=== PATIENT | female | born 1950 | race Caucasian/White ===

== ENCOUNTER 2022-09-11 19:10 | Inpatient (IN) | payer MEDICARE, BC, SELFPAY ==
[2022-09-11 19:38] VITALS: BMI 39.4
[2022-09-11 19:46] VITALS: BP 154/64; PULSE 98; RESP 16; TEMP 36.7; O2SAT 99
[2022-09-11 21:26] VITALS: BP 150/59; PULSE 94; RESP 16; TEMP 36.7; O2SAT 98
[2022-09-11 22:00] VITALS: RESP 16
[2022-09-11] MEDS: Magnesium Hydroxide 30 ML UDC 45 ML PO (22:40)
[2022-09-11] MEDS: Gabapentin 300 MG Capsule PO (23:33)
[2022-09-12] MEDS: Acetaminophen 500 MG Tablet 1000 MG PO ×4 (00:01→22:19)
--- NOTE | 2022-09-12 04:20 | NURSING ---
09/11/22 @ 22:50- Hospitalist, Dr Perry, paged @ [phone] and repeated at 23:18 d/t no response. Pt reports 7/10 pain and refused Hostetter on OCT claiming it makes her dizzy and she was getting Tylenol and Ultram PRN at . Hospitalist put in order for TICO Tylenol, Ultram prn, and x2 Lidocaine patches to be placed on both sides of back to try to see if this contributes to pain relief. Hostetter was discontinued by Dr Perry.
[2022-09-12 05:37] LABS: Absolute Lymphocyte Count 1.16 X10^3/uL (0.83-4.51); Absolute Neutrophil Count 5.2 X10^3/uL (2.0-7.7); Basophil# 0.03 X10^3/uL; Basophil% 0.4 % (0-1); Eosinophil# 0.27 X10^3/uL; Eosinophils% 3.5 % (0-5); Hemoglobin 9.5 g/dL (12.0-15.0); Lymphocyte # 1.16 X10^3/ul (0.83-4.51); Mean Corp Hgb Conc 32.8 g/dL (32-36); Mean Corpuscular Hgb 30.1 pg (27.0-32.0); Mean Corpuscular Volume 91.8 fL (81-99); Mean Platelet Vol. 10.2 fl (6.2-12.0); Monocyte# 0.91 X10^3/uL; Monocyte% 11.8 % (0-10); NRBC Flagged by Analyzer 0 % (0-5); Neutrophil # 5.23 X10^3/uL (2.7-7.7); Neutrophil % 67.9 % (47-70); Platelet Count 241 K/mm3 (150-450); RBC Distribution Width CV 14.6 % (11.6-14.6); RBC Distribution Width SD 49.1 fl (35.1-43.9); Red Blood Count 3.16 M/mm3 (4.2-5.4); White Blood Count 7.7 K/mm3 (4.4-11.0)
[2022-09-12] MEDS: Levothyroxine 150 MCG Tablet PO (05:50)
[2022-09-12] MEDS: Gabapentin 300 MG Capsule PO ×2 (05:50→14:33)
[2022-09-12 06:05] LABS: Magnesium 2.3 mg/dL (1.6-2.6)
[2022-09-12 06:09] LABS: ALB/GLOB Ratio 0.8 RATIO (0.9-2.4); AST(SGOT) 12 U/L (15-37); Alanine Aminotransfer ALT/SGPT 14 U/L (13-56); Albumin, Serum 2.6 g/dL (3.2-5.0); Alkaline Phosphatase 40 U/L (45-117); Anion Gap 5 (5-15); BUN 15 mg/dL (7-18); BUN/Creat Ratio 21.6 RATIO (10-20); Calcium,Total 8.3 mg/dL (8.5-10.1); Chloride 104 mmol/L (98-107); EST Glomerular Filtration Rate 88 mL/min (>60); Est Glom Filt Rate - Afr Amer 107 mL/min (>60); Globulin 3.1 g/dL (2.2-4.2); Glucose 112 mg/dL (74-106); Phosphorus 3.4 mg/dL (2.5-4.9); Potassium 3.8 mmol/L (3.5-5.1); Protein, Total 5.7 g/dL (6.4-8.2); Sodium Level 141 mmol/L (136-145)
[2022-09-12 07:45] VITALS: O2SAT 96
[2022-09-12 08:17] VITALS: BP 110/66; PULSE 82; RESP 17; TEMP 37; O2SAT 96
[2022-09-12] MEDS: Lidocaine 5% Patch 2 PATCH TOPICAL (09:04)
[2022-09-12] MEDS: Calcium Carb/Vitamin D 1 TABLET Tablet PO ×2 (09:04→16:07)
[2022-09-12] MEDS: Celecoxib 200 MG Capsule PO (09:04)
[2022-09-12] MEDS: Losartan Potassium 50 MG Tablet PO (09:04)
[2022-09-12] MEDS: hydroCHLOROthiazide 12.5mg 12.5 MG PO (09:04)
[2022-09-12] MEDS: Magnesium Chloride 64 MG Delay Rel.Tablet 128 MG PO (09:04)
[2022-09-12] MEDS: Menthol/Lanolin/Calamine/Znox 113 GM Tube 1 APPLIC TOPICAL (09:05)
[2022-09-12] MEDS: Nystatin Powder 15gm Bottle 1 APPLIC TOPICAL ×2 (09:05→22:17)
[2022-09-12] MEDS: traMADol 50 MG Tablet PO ×3 (09:15→22:15)
[2022-09-12] MEDS: CLARIFY ORDER NOTE ×2 (10:43→16:08)
--- NOTE | 2022-09-12 13:26 | CASEMGMT ---
SW met with patient and completed the RU admission assessment. Patient reports that her will help care for her. Daughter resides in [place] and unsure what level of support she will provide. Patient said that she has cousins and people that are local who have offered support and assistance. Patient not interested in Advanced Directives. Patient's bedrooms are upstairs in 2 story home but patient has tolliver bedroom on main level. Patient previously sleeping in a recliner. Patient has a cleaning lady. Patint is having a walk in shower being built. Patient tearful when talking about her lisa community, [employer], and stated she has not seen a door maker for awhile and not attended sikh since prior to [facility]. SW offered prosthetics assistant and communion and patient receptive. SW called and left voice mail for [employer] requesting communion and prosthetics assistant visit. KEVYN update RU KEVYN Covarrubias. No other needs identified at this time. Lashonda MARTINS
--- NOTE | 2022-09-12 15:55 | PCM.HP.STD ---
[facility] - General General Date of Admission: 09/11/22 Date of Service: 09/12/22 Chief Complaint: Debility due to recent lumbar decompression and fusion. HPI Narrative EZIO ANDREWS, is a 71 F with a PMH of hypertension, hyperlipidemia, hypothyroidism, lumbar stenosis, neuropathy of both feet, obstructive sleep apnea, spondylolisthesis, paroxysmal atrial fibrillation, chronic anticoagulation with Xarelto and morbid obesity who underwent posterior decompression of L2-L5 and transforaminal lumbar interbody fusion at L3-5 at [facility]. Post op complication included acute blood loss anemia and she received 2 units of PRBC's. Ezio was transferred to the acute inpatient rehab unit at [facility] on 09/11/2022 for 3 hours of therapy daily to restore function/independence at or near her level prior to surgery. HGB was stable between 9-9.5 at discharge from the previous hospital. All lab from this morning was personally reviewed. White blood cell count is normal at 7.7. Hemoglobin is 9.5 which is stable. Platelets are within normal limits. Sodium is 141 and the potassium is 3.8. Serum bicarb is high normal at 32. BUN is 15 and the creatinine is 0.7. BUNs/creatinine ratio is elevated at 21.6. Fasting glucose is 112. Calcium corrected for hypoalbuminemia is within normal limits. LFTs are unremarkable. Ezio tells me that prior to this surgery she lost 40 pounds with diet and Ozempic. She is no longer on any medication for diabetes mellitus. Prior to the surgery she had weakness in her left lower extremity along with radicular pain and neuropathy in both feet. While at the previous hospital she had urinary incontinence and had a Owens catheter. Catheter was removed at the time of discharge. [facility] Medical History (Updated 09/16/22 @ 15:[address] Jaclyn Briscoe, ) Atrial fibrillation Chronic anticoagulation Chronic pain CPAP (continuous positive airway pressure) dependence Diabetes mellitus, type 2 Hypertension Hypothyroidism Non-smoker Obesity (BMI 35.0-39.9 without comorbidity) Osteoarthritis Sleep apnea Home Medications alendronate 70 mg tablet 70 mg PO QWEEK SUPPLEMENT 09/11/22 [History Last Taken Unknown] calcium carbonate 600 mg-vitamin D3 10 mcg (400 unit) tablet (Calcium 600 + D(3)) 600 tab PO BID SUPPLEMENT 09/11/22 [History Last Taken Unknown] calcium polycarbophil 625 mg tablet (Fiber-Lax) 625 mg BID SUPPLEMENT 09/11/22 [History Last Taken Unknown] celecoxib 200 mg capsule 200 mg BID ANTI-INFLAMATORY 09/11/22 [History Last Taken Unknown] gabapentin 300 mg capsule 300 mg TID NERVE PAIN 09/11/22 [History Last Taken Unknown] hydrochlorothiazide 12.5 mg tablet 12.5 mg DAILY HTN 09/11/22 [History Last Taken Unknown] hydrocodone-acetaminophen 5-325mg 5mg-325mg 1 tab Q4H PRN PRN pain 1-10 09/11/22 [History Last Taken Unknown] levothyroxine 150 mcg tablet (Synthroid) 150 mcg DAILY THYROID 09/11/22 [History Last Taken Unknown] losartan 50 mg tablet 50 mg DAILY HTN 09/11/22 [History Last Taken Unknown] magnesium gluconate 500 mg tablet 500 mg PO SUTUTHSA SUPPLEMENT 09/11/22 [History Last Taken Unknown] metformin 500 mg tablet,extended release 24 hr 500 mg PO DAILY DIABETES 09/11/22 [History Last Taken Unknown] metoprolol tartrate 50 mg tablet 50 mg BID HTN 09/11/22 [History Last Taken Unknown] multivitamin 1 tab DAILY SUPPLEMENT 09/11/22 [History Last Taken Unknown] polyethylene glycol 3350 17 gram oral powder packet (Miralax) 17 g PO DAILY LAXATIVE 09/11/22 [History Last Taken Unknown] potassium chloride 20 mEq tablet,extended release 20 meq PO DAILY SUPPLEMENT 09/11/22 [History Last Taken Unknown] rivaroxaban 20 mg tablet (Xarelto) 20 mg DAILY AFIB 09/11/22 [History Last Taken Unknown] semaglutide 0.25 mg or 0.5 mg (2 mg/1.5 mL) subcutaneous pen injector (Ozempic) 0.25 mg subcut QWEEK Check with primary doctor 09/16/22 [History Last Taken Unknown] Allergy/AdvReac Type Severity Reaction Status Date / Time No Known Allergies Allergy Verified 09/11/22 20:50 Family History (Updated 09/16/22 @ 16:[address] Jaclyn Briscoe DO) Mother , at age 68 from colon cancer Hypertension Cancer Father , at age 55 secondary to lung cancer. He was a smoker Cancer Other CVA (cerebral vascular accident) Surgical History (Updated 09/16/22 @ 16:[address] Jaclyn Briscoe DO) H/O breast biopsy History of lumbar fusion History of thyroidectomy Social History household members: spouse Smoking Status: Never smoker alcohol intake: never substance use type: does not use ROS Constitutional Constitutional: Reports change in weight, difficulty sleeping, weight loss and other Details: Weight loss was intentional. ; Denies fever(s) or night sweats Eyes Eyes: Reports systems reviewed and no addt'l complaints, except as documented and requires corrective lenses; Denies change in vision, loss of peripheral vision, photophobia, tearing or tunnel vision ENT HEENT: Reports dry mouth; Denies abnormal hearing, nasal congestion, neck pain, odynophagia or sore throat Cardiovascular Cardiovascular: Reports hypertension and irregular heart rhythm; Denies abdominal pain, chest pain, dyspnea at rest, dyspnea on exertion, edema, palpitations or vomiting Respiratory/Chest Respiratory/Chest: Reports systems reviewed and no addt'l complaints, except as documented Gastrointestinal Gastrointestinal: Reports change in bowel habits and constipation; Denies chewing difficulty, diarrhea, hematemesis, hematochezia, melena, nausea or vomiting Genitourinary Genitourinary: Denies burning urination, difficulty urinating or flank pain Musculoskeletal Musculoskeletal: Reports difficulty walking, extremity pain, joint stiffness, muscle weakness, radiating pain into limb and tingling; Denies deformity or tremors Integumentary Integumentary: Reports alopecia, wounds and other Details: She has an incision on the midline in the lumbar area secondary to recent lumbar decompression and fusion. ; Denies erythema, hirsutism or jaundice Neurologic Neurologic: Reports paresthesias, radicular pain and weakness; Denies dizziness Psychiatric Psychiatric: Denies abnormal sleep pattern, anhedonia, anxiety, auditory hallucinations, behavioral changes, confusion, homicidal ideation, mood swings or suicidal ideation Endocrine Endocrinology: Reports systems reviewed and no addt'l complaints, except as documented Hematologic/Lymphatic Hematologic/Lymphatic: Reports systems reviewed and no addt'l complaints, except as documented Allergic/Immunologic Allergic/Immunologic: Reports systems reviewed and no addt'l complaints, except as documented Vital Signs Vital Signs Vital Signs: 09/11/22 19:46 09/11/22 21:26 09/11/22 22:00 Temperature 98.1 F 98.0 F Temperature Source Oral Oral Pulse Rate 98 94 Respiratory Rate 16 16 16 Respiratory Effort Normal Non-Labored Respiratory Depth Normal Blood Pressure 154/64 H 150/59 H Blood Pressure Mean 94 89 Blood Pressure Source Monitor Monitor Blood Pressure Position Sitting Sitting Blood Pressure Location Right Arm Left Arm Pulse Ox 99 98 Oxygen Delivery Method Room Air Room Air 09/12/22 08:17 09/12/22 07:45 Temperature 98.6 F Temperature Source Oral Pulse Rate 82 Respiratory Rate 17 Respiratory Effort Respiratory Depth Blood Pressure 110/66 Blood Pressure Mean 80 Blood Pressure Source Monitor Blood Pressure Position Semi-Fowlers Blood Pressure Location Right Arm Pulse Ox 96 96 Oxygen Delivery Method Room Air Room Air Weight Weight: 230 lb Body Mass Index (BMI) 39.4 Physical Exam Const alert, oriented x3, no apparent distress and well nourished General Appearance: cooperative HEENT normocephalic, head/scalp atraumatic and TM's normal bilaterally HEENT Narrative: Mucous membranes are dry Face and Sinus: face symmetric; Negative for facial edema or cushingoid facies General Ear: other Other Details: Hearing is grossly normal. Eyes PERRL, EOMs intact bilaterally, conjunctivae normal, no scleral icterus and normal visual mariee by confrontation Neck full ROM, No nuchal rigidity, no lymphadenopathy and no carotid bruits Chest Chest: symmetrical chest wall rise Resp normal respiratory effort, normal air movement and clear to auscultation bilaterally Resp Narrative: Diminished in the bases, likely secondary to body habitus. Effort and Inspection: able to speak in complete sentences Cardio regular rate, regular rhythm, S1 normal heart sound, S2 normal heart sound, no murmurs, no rub, no gallops and peripheral pulses 2+ throughout GI normal to inspection, nondistended, normoactive bowel sounds, soft to palpation, non-tender, no masses and no bruits GI Narrative: No guarding with palpation no CVA tenderness Back/Spine Back/Spine Narrative: The lumbar incision is intact with no randal-incisional erythema, no discharge and no increased warmth to touch. Extremity no calf tenderness and no pedal edema Extremity Narrative: Dorsalis pedis pulses are 2+ bilaterally. Intact sensation to both feet. Skin Skin Narrative: She has a very small reddened area over the tip of the coccyx that is tender. No opening in the skin. Calmoseptine has been applied. Neuro oriented x3, CN's II-XII intact bilaterally and moves all extremities Neuro Narrative: She has decreased strength in the LLE and this has always been her bad leg Psych mental status grossly normal, thought process normal, cooperative and affect normal Appearance: grossly normal Attitude: calm Activity / Motor Behavior: appropriate eye contact Speech: normal speech Results Lab / Micro Data Result Diagrams: 09/12/22 05:02 09/12/22 05:02 Labs: Laboratory Results - last 24 hr 09/12/22 05:02: Magnesium 2.3 09/12/22 05:02: WBC 7.7, RBC 3.16 L, Hgb 9.5 L, Hct 29.0 L, MCV 91.8, MCH 30.1, MCHC 32.8, RDW Std Deviation 49.1 H, RDW Coeff of Courtney 14.6, Plt Count 241, MPV 10.2, Immature Gran % (Auto) 1.400 H, Neut % (Auto) 67.9, Lymph % (Auto) 15.0 L, [place]ville % (Auto) 11.8 H, Eos % (Auto) 3.5, Baso % (Auto) 0.4, Absolute Neuts (auto) 5.2, Absolute Lymphs (auto) 1.16, Nucleated RBC % 0 09/12/22 05:02: Sodium 141, Potassium 3.8, Chloride 104, Carbon Dioxide 32.0, Anion Gap 5, BUN 15, Creatinine 0.70, Estim Creat Clear Calc 45.20, Est GFR (MDRD) Af Amer 107, Est GFR (MDRD) Non-Af 88, BUN/Creatinine Ratio 21.6 H, Glucose 112 H, Calcium 8.3 L, Phosphorus 3.4, Total Bilirubin 0.90, AST 12 L, ALT 14, Alkaline Phosphatase 40 L, Total Protein 5.7 L, Albumin 2.6 L, Globulin 3.1, Albumin/Globulin Ratio 0.8 L Assessment & Plan Assessment/Plan (1) Physical debility: (2) Central stenosis of spinal canal: (3) Spondylolisthesis: (4) Radicular pain of left lower extremity: (5) Weakness of left leg: (6) Chronic pain: (7) History of lumbar fusion: (8) Normochromic normocytic anemia: (9) Obstipation: (10) Diabetes mellitus, type 2: (11) Hypertension: (12) Sleep apnea: (13) CPAP (continuous positive airway pressure) dependence: (14) Atrial fibrillation: (15) Obesity (BMI 35.0-39.9 without comorbidity): (16) Osteoarthritis: (17) Chronic anticoagulation: (18) Hypothyroidism: PLAN: Plan PLAN PT for gait stability OT for ADL's Analgesics as needed Bowel protocol Fall precautions Assess for Anxiety/Depression GI prophylaxis with Protonix 40 mg daily DVT prophylaxis with SRIKANTH dugan and Kerri. Will contact the [facility] to find out when it is acceptable to start pharmacologic DVT prophylaxis. Follow up with PCP and orthopedic surgeon following DC from Rehab AM lab including CMP, CBC, Mag and Phos were personally reviewed Change the gabapentin to 300 mg twice daily and 600 mg at 9 PM nightly for better control of radicular pain. Watch for signs of daytime somnolence. If she is not asleep by 11 PM will give 50 mg of trazodone. Check Accu-Cheks before meals and at bedtime for 48 hours since she is off all her diabetic medications Check a hemoglobin A1c Add a PPI for GI protection since she is on Celebrex 200 mg twice daily and Xarelto. Charges/Coding Visit Charges Inpatient E&M: 31170 Init Hosp L2
--- NOTE | 2022-09-12 19:01 | PCM.RU.PYE ---
Admission Information Primary Diagnosis:: Debility secondary to lumbar canal stenosis, foraminal stenosis and recent lumbar laminectomy and fusion. Status Changes from Prescreening?: No changes Identified Actual Problem List:: Skin Intergrity, Pain, ALteration in Cmfrt, Bowel, Constipation, Alteration in Sleep, Mobility Impaired, Self Care Deficit, Diabetes, Hyperglycemia (Recently taken off her diabetic medications since she lost 40 pounds. FBS was 112 this AM), Fluid Change-Dehydration and Alteration-Leisure Activ. Potential Problem List:: DVT, Bleeding, Infection, UTI, Aspiration, Falls, Skin Integrity and Depression Risk of Complications DVT: SRIKANTH Hose and Sequential Compression Device Bleeding: Monitor Lab Values, Nursing to Teach Precautions for anti-coagulation therapy., Wound, if applicable, to be assessed every shift. and Stroke patients assessed for lethargy or change in status. Infection: Clinical Staff to Monitor for S/S of infection: and S/S of infection include fever, redness, warmth, etc. Urinary Tract Infection: Monitor for frequency, burning, discomfort, or incontinence. and Nursing will obtain urine sample for urinalysis and C&S when ordered. Aspiration: Clinical staff will monitor for coughing, drooling, congestion., Speech will evaluate swallowing and dsyphasia. and Nursing will monitor patient swallowing during meals. Falls: Patient will be evaluated for Fall Precautions and Patient will be placed on Fall Precautions as indicated per protocol. Skin Breakdown: Nursing will assess skin daily using assessment tool. and Nursing will place on Skin Breakdown Precautions as indicated. Pain: Clinical staff will assess patient's pain level per protocol., Medications will be given, if needed, and the pain level reassessed. and Other methods: Massage, distraction, decrease stimulus, etc. used PRN. Plan of Care Patient requires physician specializing in physical medicine and rehab oversight to provide close medical supervision of rehab issues including: Pain Management, Sleep Problems, Bowel and Bladder, Medical and co-morbidity Management, DVT prophylaxis, Rehabilitation Leadership and Coordination of treatment team Patient needs Physical Therapy: For a minimum of 1 hour and At least 5 out of 7 days Patient needs Physical Therapy to improve:: Mobility, Strengthening, Transfers, Stretching, ROM, Endurance, Stairs, Gait and Balance Patient needs Occupational Therapy: For a minimum of 1 hour and At least 5 out of 7 days Patient needs Occupational Therapy to improve ADL's incl.: Eating, Grooming, Bathing, Dressing, Toileting, Toilet transfers, Community Reintegration, Higher functioning activities, Household tasks, Adaptive Equipment, Splinting and Other activities as determined Patient requires 24/7 Rehabilitation Nursing for: Pain Issues, Identifying and preventing risk factors, Monitoring and reporting current medical conditions, Assisting with ambulation, transfer, and all ADL's, Teaching patients about disease process and medications, Family teaching, Providing safe environment, Bowel and Bladder Issues, Skin integrity and Medication Management Patient needs Film Rental Clerk/ Case Management for: Discharge Planning, Arranging Home Equipment or Services and Family Interventions Patient needs Dietary and Nutrition Services for: Adequate Nutrition, Nutritional Supplements and Nutritional Education Goals Patient will remain: free from falls Patient will perform bed mobility at: MOD I level of assist. Patient will complete transfers from bed to chair at: MOD I level of assist. (The least restrictive device.) Patient will ambulate: - (150 feet at standby assist on various surfaces with a wheeled walker) Patient will complete upper body dressing at: MOD I level of assist. Patient will complete lower body dressing at: MOD I level of assist. (With appropriate adaptive equipment.) Patient will complete toileting at: MOD I level of assist. Patient will perform bathing at: MOD I level of assist. Patient will complete grooming at: MOD I level of assist. Patient will complete home management skills at: MOD I level of assist. Patient will achieve: - (3 steps with 2 handrails at contact-guard assist to allow entrance to her home.) Patient will have pain level of: of 3 or less Patient's skin will: remain intact Patient will receive: adequate nutrition. Discharge Planning Estimated Length of stay (days): 21 Anticipated D/C Destination: Home with Home Health Was Preadmission Assessment Accurate?: Yes
[2022-09-12 19:06] LABS: Hemoglobin A1c 5.1 % (3.8-5.6)
[2022-09-12 20:20] VITALS: O2SAT 98
[2022-09-12 22:00] VITALS: BP 116/65; PULSE 75; RESP 16; TEMP 36.5; O2SAT 98
[2022-09-12 22:10] LABS: Bedside Glucose 97 mg/dL (74-106)
[2022-09-12] MEDS: Gabapentin 600 MG Tablet PO (22:16)
[2022-09-12] MEDS: Senna/Docusate Sodium 1 Tablet 2 TABLET PO (22:16)
[2022-09-12] MEDS: traZODone 50 MG Tablet PO (23:35)
[2022-09-13] MEDS: Levothyroxine 150 MCG Tablet PO (05:57)
[2022-09-13] MEDS: Acetaminophen 500 MG Tablet 1000 MG PO ×3 (05:57→21:30)
[2022-09-13] MEDS: Gabapentin 300 MG Capsule PO ×2 (05:57→14:23)
[2022-09-13] MEDS: traMADol 50 MG Tablet PO ×3 (05:58→19:48)
[2022-09-13 06:26] VITALS: O2SAT 97
[2022-09-13 07:45] VITALS: BP 118/69; PULSE 80; RESP 16; TEMP 36.1; O2SAT 95
[2022-09-13 07:50] LABS: Bedside Glucose 96 mg/dL (74-106)
[2022-09-13] MEDS: Nystatin Powder 15gm Bottle 1 APPLIC TOPICAL ×2 (08:15→21:34)
[2022-09-13] MEDS: hydroCHLOROthiazide 12.5mg 12.5 MG PO (08:16)
[2022-09-13] MEDS: Losartan Potassium 50 MG Tablet PO (08:16)
[2022-09-13] MEDS: Lidocaine 5% Patch 2 PATCH TOPICAL (08:16)
[2022-09-13] MEDS: Pantoprazole Sodium 40 MG Tablet PO (08:16)
[2022-09-13] MEDS: Calcium Carb/Vitamin D 1 TABLET Tablet PO ×2 (08:16→17:55)
[2022-09-13] MEDS: Senna/Docusate Sodium 1 Tablet 2 TABLET PO ×2 (08:16→21:30)
[2022-09-13 12:21] LABS: Bedside Glucose 122 mg/dL (74-106)
[2022-09-13 17:31] LABS: Bedside Glucose 112 mg/dL (74-106)
[2022-09-13] MEDS: traZODone 50 MG Tablet PO (21:31)
[2022-09-13] MEDS: Gabapentin 600 MG Tablet PO (21:33)
[2022-09-13 21:35] VITALS: BP 103/60; PULSE 93; RESP 16; TEMP 37; O2SAT 100
[2022-09-13 22:15] LABS: Bedside Glucose 115 mg/dL (74-106)
[2022-09-14] MEDS: traMADol 50 MG Tablet PO ×3 (02:04→15:55)
[2022-09-14] MEDS: Acetaminophen 500 MG Tablet 1000 MG PO ×3 (06:14→21:23)
[2022-09-14] MEDS: Gabapentin 300 MG Capsule PO ×2 (06:14→13:42)
[2022-09-14] MEDS: Levothyroxine 150 MCG Tablet PO (06:14)
[2022-09-14 07:16] LABS: Bedside Glucose 97 mg/dL (74-106)
[2022-09-14 08:21] VITALS: BP 104/60; PULSE 83; RESP 16; TEMP 36.5; O2SAT 95
[2022-09-14] MEDS: Calcium Carb/Vitamin D 1 TABLET Tablet PO ×2 (08:26→17:30)
[2022-09-14] MEDS: Losartan Potassium 50 MG Tablet PO (08:27)
[2022-09-14] MEDS: hydroCHLOROthiazide 12.5mg 12.5 MG PO (08:27)
[2022-09-14] MEDS: Lidocaine 5% Patch 2 PATCH TOPICAL (08:28)
[2022-09-14] MEDS: Magnesium Chloride 64 MG Delay Rel.Tablet 128 MG PO (08:28)
[2022-09-14] MEDS: Senna/Docusate Sodium 1 Tablet 2 TABLET PO ×2 (08:29→21:24)
[2022-09-14] MEDS: Pantoprazole Sodium 40 MG Tablet PO (08:29)
[2022-09-14 08:36] VITALS: O2SAT 92
[2022-09-14] MEDS: Nystatin Powder 15gm Bottle 1 APPLIC TOPICAL ×2 (08:38→21:21)
[2022-09-14 11:25] LABS: Bedside Glucose 126 mg/dL (74-106)
[2022-09-14 16:26] LABS: Bedside Glucose 119 mg/dL (74-106)
[2022-09-14 20:26] VITALS: BP 110/63; PULSE 79; RESP 18; TEMP 36.8; O2SAT 96
[2022-09-14] MEDS: Gabapentin 600 MG Tablet PO (21:21)
[2022-09-14 21:25] LABS: Bedside Glucose 102 mg/dL (74-106)
[2022-09-15] MEDS: Levothyroxine 150 MCG Tablet PO (04:44)
[2022-09-15] MEDS: Acetaminophen 500 MG Tablet 1000 MG PO ×3 (04:44→21:04)
[2022-09-15] MEDS: Gabapentin 300 MG Capsule PO ×2 (04:47→14:47)
[2022-09-15] MEDS: traMADol 50 MG Tablet PO ×3 (06:47→22:02)
[2022-09-15 07:36] LABS: Bedside Glucose 105 mg/dL (74-106)
[2022-09-15 09:33] VITALS: BP 120/63; PULSE 78; RESP 18; TEMP 36.6; O2SAT 98
[2022-09-15] MEDS: Losartan Potassium 50 MG Tablet PO (09:41)
[2022-09-15] MEDS: Senna/Docusate Sodium 1 Tablet 2 TABLET PO ×2 (09:41→21:04)
[2022-09-15] MEDS: Lidocaine 5% Patch 2 PATCH TOPICAL (09:42)
[2022-09-15] MEDS: hydroCHLOROthiazide 12.5mg 12.5 MG PO (09:42)
[2022-09-15] MEDS: Pantoprazole Sodium 40 MG Tablet PO (09:42)
[2022-09-15] MEDS: Calcium Carb/Vitamin D 1 TABLET Tablet PO ×2 (09:43→17:28)
[2022-09-15] MEDS: Magnesium Chloride 64 MG Delay Rel.Tablet 128 MG PO (09:47)
[2022-09-15] MEDS: Nystatin Powder 15gm Bottle 1 APPLIC TOPICAL ×2 (09:49→21:04)
--- NOTE | 2022-09-15 11:14 | NURSING ---
Patient ambulated in hallway using walker and gait belt. Tolerated well.
[2022-09-15 11:30] LABS: Bedside Glucose 94 mg/dL (74-106)
[2022-09-15 16:30] LABS: Bedside Glucose 107 mg/dL (74-106)
[2022-09-15 19:19] VITALS: BP 106/61; PULSE 91; RESP 16; TEMP 36.9; O2SAT 97
[2022-09-15] MEDS: Gabapentin 600 MG Tablet PO (21:04)
[2022-09-15 21:55] LABS: Bedside Glucose 113 mg/dL (74-106)
[2022-09-15 22:00] VITALS: PULSE 91; RESP 16
[2022-09-16] MEDS: traMADol 50 MG Tablet PO ×3 (04:06→16:40)
[2022-09-16] MEDS: Alendronate Sodium 70 MG Tablet PO (06:30)
[2022-09-16] MEDS: Gabapentin 300 MG Capsule PO ×2 (06:30→13:40)
[2022-09-16] MEDS: Acetaminophen 500 MG Tablet 1000 MG PO ×3 (06:30→22:31)
[2022-09-16] MEDS: Levothyroxine 150 MCG Tablet PO (06:30)
[2022-09-16 07:06] LABS: Bedside Glucose 97 mg/dL (74-106)
[2022-09-16 07:39] VITALS: BP 106/69; PULSE 80; RESP 16; TEMP 36.4; O2SAT 98
[2022-09-16] MEDS: hydroCHLOROthiazide 12.5mg 12.5 MG PO (08:55)
[2022-09-16] MEDS: Losartan Potassium 50 MG Tablet PO (08:55)
[2022-09-16] MEDS: Calcium Carb/Vitamin D 1 TABLET Tablet PO ×2 (08:55→16:40)
[2022-09-16] MEDS: Lidocaine 5% Patch 2 PATCH TOPICAL (08:56)
[2022-09-16] MEDS: Pantoprazole Sodium 40 MG Tablet PO (08:57)
[2022-09-16] MEDS: Senna/Docusate Sodium 1 Tablet 2 TABLET PO ×2 (08:57→22:31)
[2022-09-16] MEDS: Nystatin Powder 15gm Bottle 1 APPLIC TOPICAL ×2 (08:59→22:32)
[2022-09-16 12:10] LABS: Bedside Glucose 117 mg/dL (74-106)
--- NOTE | 2022-09-16 12:15 | PCM.PROGNOTE ---
Subjective Subjective Bed was seen on team rounds today. Her Ciro was present in the room. Afebrile VSS-blood pressure is within goal and the heart rate is within normal limits. Maintaining appropriate oxygen saturation on RA Oral intake is good Her highest blood sugars since arrival on rehab has been 126 with no hypoglycemia. Her family brought in Ozempic today which she really does not need for control of DM II at this time so I assume she is using it for weight loss......she was able to lose 40 lbs prior to the recent surgery. Discussed with nursing - no problems that need addressed Reviewed the PT/OT notes Medication list reviewed. Pain is adequately controlled. Sleeping well at night. Good appetite. Bath denies lightheadedness, vertigo, CP, SOB at rest, SOB with exertion, cough, nausea, vomiting, abd pain, diarrhea, constipation, dysuria, calf pain and ankle swelling. She feels as though she is making good progress. She has occasional zingers in the LLE but they last seconds. Objective Data Objective Data Vital Signs: Vital Signs Temp Pulse Resp BP Pulse Ox O2 Del Method 97.6 F L 80 16 106/69 98 Room Air 09/16/22 07:39 09/16/22 07:39 09/16/22 07:39 09/16/22 07:39 09/16/22 07:39 09/16/22 07:39 Oxygen Delivery Method Room Air Weight: 230 lb Body Mass Index (BMI) 39.4 Intake & Output: Intake and Output for Last 24 Hours 09/14/22 09/15/22 09/16/22 23:59 23:59 23:59 Intake Total 1760 / 1760 1989 Output Total 1000 / 1000 1350 / 1350 Balance 760 / 760 640 / 640 Lab / Micro Data Result Diagrams: 09/12/22 05:02 09/12/22 05:02 Labs: Laboratory Results - last 24 hr 09/15/22 16:08: POC Glucose 107 H 09/15/22 21:34: POC Glucose 113 H 09/16/22 06:43: POC Glucose 97 09/16/22 11:50: POC Glucose 117 H Physical Exam Const alert, oriented x3 and no apparent distress General Appearance: cooperative Resp normal respiratory effort, normal air movement and clear to auscultation bilaterally Resp Narrative: Diminished in the bases, likely secondary to body habitus. Cardio regular rate, regular rhythm, no murmurs and no gallops GI normal to inspection, nondistended, normoactive bowel sounds, soft to palpation and non-tender GI Narrative: No guarding with palpation Back/Spine Back/Spine Narrative: The lumbar incision is intact with no randal-incisional erythema, no discharge and no increased warmth to touch. Extremity no calf tenderness and no pedal edema Extremity Narrative: Dorsalis pedis pulses are 2+ bilaterally. Intact sensation to both feet. Psych mental status grossly normal, thought process normal, cooperative and affect normal Assessment & Plan Assessment/Plan (1) Physical debility: (2) Central stenosis of spinal canal: (3) Spondylolisthesis: (4) Radicular pain of left lower extremity: (5) Weakness of left leg: (6) Chronic pain: (7) History of lumbar fusion: (8) Normochromic normocytic anemia: PLAN: Stable (9) Obstipation: PLAN: Resolved (10) Diabetes mellitus, type 2: PLAN: Currently diet controlled. Patient's brought in Ozempic for her to use while in the hospital. (11) Hypertension: PLAN: Controlled (12) Sleep apnea: PLAN: Compliant with CPAP (13) CPAP (continuous positive airway pressure) dependence: (14) Atrial fibrillation: PLAN: Paroxysmal (15) Obesity (BMI 35.0-39.9 without comorbidity): (16) Osteoarthritis: (17) Chronic anticoagulation: PLAN: Xarelto is on hold post lumbar decompression and fusion. (18) Hypothyroidism: PLAN: Plan 1. Continue therapy 2. Recheck H&H and BMP tomorrow. 3. Find out from the orthopedic surgeon when it would be acceptable to restart Xarelto and if not Xarelto then Lovenox for DVT prophylaxis. Until then continue SRIKANTH hose, SCDs and ambulation. 4. Okay to restart Ozempic. Charges/Coding Visit Charges Inpatient E&M: 05102 Subs Hosp L2
[2022-09-16] MEDS: SEMAGLUTIDE 1 MG/0.75 ML PEN.INJCTR 0.5 MG SQ (13:41)
--- NOTE | 2022-09-16 17:37 | CASEMGMT ---
Social Work - IDT met with patient and spouse for Team meeting today, 09.16.22. Discussed patient?s progress in PT/OT/SN. Educated to social work role, discharge planning, and working within insurance timeframe for planning needs. The goal is for patient to return home with assist. Daughter has been spending time at home with patient, and plans to remain working remotely from patient's home for 2 weeks post discharge. Inquired about any DME needs and reported the home is big and spacious, minimal steps to enter, with DME available including walkers and a BSC. expressed feeling confident that can safely care for patient's needs at home. Discussed HHC versus Outpatient therapy at discharge. Currently, Team suggesting short term HHC then transition to outpatient therapy services. Will Re-Team. SW to continue to follow. After IDT completion, learned patient has 15 days approved via Medicare (15 days from admission). Presented to patient's room, updating patient and . Patient and both express understanding that 15 days is from day of admit. Reviewed HHC versus Outpatient. Patient expressed confidence that will be able to do outpatient therapy right away and prefers Outpatient PT/OT over HHC. Prefer to go with [facility] ([phone]) in [facility] as has personal history with this agency via other family members Plan: Home with and daughter assist. DME is reported as in place. Prefers outpatient therapy at [facility] in [place], [place]. SW to follow. Will re-team on 09.23.22 -LAKSHMI Dean MSW
[2022-09-16 19:27] VITALS: BP 104/62; PULSE 80; RESP 18; TEMP 36.6; O2SAT 97
[2022-09-16 22:00] VITALS: PULSE 88; RESP 16
[2022-09-16] MEDS: Gabapentin 600 MG Tablet PO (22:31)
[2022-09-17] MEDS: traMADol 50 MG Tablet PO ×4 (00:27→23:28)
[2022-09-17] MEDS: Levothyroxine 150 MCG Tablet PO (07:07)
[2022-09-17] MEDS: Acetaminophen 500 MG Tablet 1000 MG PO ×3 (07:07→22:44)
[2022-09-17] MEDS: Gabapentin 300 MG Capsule PO ×2 (07:07→14:17)
[2022-09-17] MEDS: Calcium Carb/Vitamin D 1 TABLET Tablet PO ×2 (07:52→16:00)
[2022-09-17 07:55] VITALS: BP 114/61; PULSE 74; RESP 18; TEMP 36.4; O2SAT 98
[2022-09-17] MEDS: Lidocaine 5% Patch 2 PATCH TOPICAL (09:18)
[2022-09-17] MEDS: hydroCHLOROthiazide 12.5mg 12.5 MG PO (09:19)
[2022-09-17] MEDS: Senna/Docusate Sodium 1 Tablet 2 TABLET PO ×2 (09:19→22:44)
[2022-09-17] MEDS: Losartan Potassium 50 MG Tablet PO (09:19)
[2022-09-17] MEDS: Pantoprazole Sodium 40 MG Tablet PO (09:19)
[2022-09-17] MEDS: Magnesium Chloride 64 MG Delay Rel.Tablet 128 MG PO (09:19)
[2022-09-17] MEDS: Nystatin Powder 15gm Bottle 1 APPLIC TOPICAL ×2 (09:20→23:14)
--- NOTE | 2022-09-17 10:11 | PCM.PN.BLA ---
Progress Note Afebrile VSS blood pressure and heart rate are within normal limits. Maintaining appropriate oxygen saturation on RA Oral intake is good Discussed with nursing - no problems that need addressed Reviewed the PT/OT notes Medication list reviewed. Sleeping well, good appetite. Tells me pain is adequately controlled. She denies chest pain, shortness of breath, nausea, vomiting, abdominal pain, dysuria and calf pain. Physical Exam Const alert, oriented x3 and no apparent distress General Appearance: cooperative Resp normal respiratory effort, normal air movement and clear to auscultation bilaterally Resp Narrative: Diminished in the bases, likely secondary to body habitus. Cardio regular rate, regular rhythm, no murmurs and no gallops GI normal to inspection, nondistended, normoactive bowel sounds, soft to palpation and non-tender GI Narrative: No guarding with palpation Back/Spine Back/Spine Narrative: The lumbar incision is intact with no randal-incisional erythema, no discharge and no increased warmth to touch. Extremity no calf tenderness and no pedal edema Extremity Narrative: Dorsalis pedis pulses are 2+ bilaterally. Intact sensation to both feet. Psych mental status grossly normal, thought process normal, cooperative and affect normal Assessment & Plan Assessment/Plan (1) Physical debility: (2) Central stenosis of spinal canal: (3) Spondylolisthesis: (4) Radicular pain of left lower extremity: (5) Weakness of left leg: (6) Chronic pain: (7) History of lumbar fusion: (8) Normochromic normocytic anemia: PLAN: Stable (9) Obstipation: PLAN: Resolved (10) Diabetes mellitus, type 2: PLAN: Currently diet controlled. Patient's brought in Ozempic for her to use while in the hospital. (11) Hypertension: PLAN: Controlled (12) Sleep apnea: PLAN: Compliant with CPAP (13) CPAP (continuous positive airway pressure) dependence: (14) Atrial fibrillation: PLAN: Paroxysmal (15) Obesity (BMI 35.0-39.9 without comorbidity): (16) Osteoarthritis: (17) Chronic anticoagulation: PLAN: Xarelto is on hold post lumbar decompression and fusion. (18) Hypothyroidism: PLAN: Plan 1. Continue therapy 2. Recheck H&H and BMP tomorrow. 3. Find out from the orthopedic surgeon when it would be acceptable to restart Xarelto and if not Xarelto then Lovenox for DVT prophylaxis. Until then continue SRIKANTH hose, SCDs and ambulation. 4. Okay to restart Ozempic. 5. 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
--- NOTE | 2022-09-17 10:36 | NURSING ---
Spoke with Magda at Dr Dean office pt is ok to restart Xarelto. will update Dr Briscoe
[2022-09-17 22:00] VITALS: BP 126/64; PULSE 98; RESP 18; TEMP 36.8; O2SAT 97
[2022-09-17] MEDS: Gabapentin 600 MG Tablet PO (22:44)
[2022-09-17] MEDS: Menthol/Lanolin/Calamine/Znox 113 GM Tube 1 APPLIC TOPICAL (23:14)
[2022-09-18] MEDS: Levothyroxine 150 MCG Tablet PO (05:56)
[2022-09-18] MEDS: Menthol/Lanolin/Calamine/Znox 113 GM Tube 1 APPLIC TOPICAL ×2 (05:56→21:20)
[2022-09-18] MEDS: Gabapentin 300 MG Capsule PO ×2 (05:56→13:25)
[2022-09-18] MEDS: Acetaminophen 500 MG Tablet 1000 MG PO ×3 (05:56→22:26)
[2022-09-18 07:25] VITALS: BP 120/70; PULSE 77; RESP 17; TEMP 35.9; O2SAT 98
[2022-09-18] MEDS: traMADol 50 MG Tablet PO ×3 (08:05→21:19)
[2022-09-18] MEDS: Senna/Docusate Sodium 1 Tablet 2 TABLET PO ×2 (08:06→21:19)
[2022-09-18] MEDS: Calcium Carb/Vitamin D 1 TABLET Tablet PO ×2 (08:06→16:34)
[2022-09-18] MEDS: Pantoprazole Sodium 40 MG Tablet PO (08:06)
[2022-09-18] MEDS: Lidocaine 5% Patch 2 PATCH TOPICAL (08:06)
[2022-09-18] MEDS: Losartan Potassium 50 MG Tablet PO (08:07)
[2022-09-18] MEDS: Nystatin Powder 15gm Bottle 1 APPLIC TOPICAL ×2 (08:07→21:20)
[2022-09-18] MEDS: hydroCHLOROthiazide 12.5mg 12.5 MG PO (08:07)
[2022-09-18 19:46] VITALS: BP 117/63; PULSE 92; RESP 18; TEMP 36.9; O2SAT 98
[2022-09-18 20:20] VITALS: O2SAT 98
[2022-09-18] MEDS: Gabapentin 600 MG Tablet PO (22:26)
[2022-09-19] MEDS: traMADol 50 MG Tablet PO ×4 (03:41→22:40)
[2022-09-19] MEDS: Levothyroxine 150 MCG Tablet PO (05:13)
[2022-09-19] MEDS: Gabapentin 300 MG Capsule PO ×2 (05:14→14:27)
[2022-09-19] MEDS: Acetaminophen 500 MG Tablet 1000 MG PO ×3 (05:14→21:29)
[2022-09-19] MEDS: Menthol/Lanolin/Calamine/Znox 113 GM Tube 1 APPLIC TOPICAL ×2 (05:15→21:30)
[2022-09-19 07:36] VITALS: BP 108/62; PULSE 73; RESP 16; TEMP 36.5; O2SAT 96
[2022-09-19] MEDS: Lidocaine 5% Patch 2 PATCH TOPICAL (07:59)
[2022-09-19] MEDS: Losartan Potassium 50 MG Tablet PO (08:00)
[2022-09-19] MEDS: Pantoprazole Sodium 40 MG Tablet PO (08:00)
[2022-09-19] MEDS: Magnesium Chloride 64 MG Delay Rel.Tablet 128 MG PO (08:00)
[2022-09-19] MEDS: Calcium Carb/Vitamin D 1 TABLET Tablet PO ×2 (08:00→16:16)
[2022-09-19] MEDS: hydroCHLOROthiazide 12.5mg 12.5 MG PO (08:00)
[2022-09-19] MEDS: Nystatin Powder 15gm Bottle 1 APPLIC TOPICAL ×2 (08:00→21:30)
[2022-09-19] MEDS: Senna/Docusate Sodium 1 Tablet 2 TABLET PO ×2 (08:00→21:29)
--- NOTE | 2022-09-19 18:09 | PCM.PROGNOTE ---
Subjective Subjective Afebrile VSS-blood pressure is well controlled. Maintaining appropriate oxygen saturation on RA Oral intake is good. Discussed with nursing - no problems that need addressed Reviewed the PT/OT notes Medication list reviewed. Lashonda denies lightheadedness, vertigo, CP, SOB at rest, SOB with exertion, cough, nausea, vomiting, abd pain, diarrhea, constipation, dysuria, calf pain and ankle swelling. She is sleeping well and has a good appetite and intake. She is progressing in therapy. Objective Data Objective Data Vital Signs: Vital Signs Temp Pulse Resp BP Pulse Ox O2 Del Method 97.7 F L 73 16 108/62 96 Room Air 09/19/22 07:36 09/19/22 07:36 09/19/22 07:36 09/19/22 07:36 09/19/22 07:36 09/19/22 07:36 Oxygen Delivery Method Room Air Weight: 231 lb 14.821 oz Body Mass Index (BMI) 39.4 Intake & Output: Intake and Output for Last 24 Hours 09/17/22 09/18/22 09/19/22 23:59 23:59 23:59 Intake Total 910 / 910 1710 / 1710 1840 / 1840 Output Total 1500 / 1500 1650 / 1650 1300 / 1300 Balance -590 / -590 60 / 60 540 / 540 Lab / Micro Data Result Diagrams: 09/12/22 05:02 09/12/22 05:02 Physical Exam Const alert and no apparent distress Resp normal respiratory effort, normal air movement and clear to auscultation bilaterally Cardio regular rate, regular rhythm, no murmurs and no gallops GI normal to inspection, nondistended, normoactive bowel sounds, soft to palpation and non-tender GI Narrative: No guarding with palpation Back/Spine Back/Spine Narrative: The lumbar incision is intact with no randal-incisional erythema, no discharge and no increased warmth to touch. Extremity no calf tenderness and no pedal edema Psych mental status grossly normal, thought process normal, cooperative and affect normal Assessment & Plan Assessment/Plan (1) Physical debility: (2) Central stenosis of spinal canal: (3) History of lumbar fusion: (4) Normochromic normocytic anemia: (5) Hypertension: (6) Sleep apnea: (7) CPAP (continuous positive airway pressure) dependence: (8) Atrial fibrillation: (9) Weakness of left leg: (10) Radicular pain of left lower extremity: PLAN: Plan 1. Continue therapy 2. Recheck BMP and an H&H in the AM. 3. Continue all current medications. Charges/Coding Visit Charges Inpatient E&M: 41027 Subs Hosp L1
[2022-09-19] MEDS: Gabapentin 600 MG Tablet PO (21:29)
[2022-09-19 21:34] VITALS: BP 108/64; PULSE 82; RESP 16; TEMP 36.8; O2SAT 96
[2022-09-20] MEDS: traMADol 50 MG Tablet PO ×4 (04:49→23:16)
[2022-09-20 05:56] LABS: Hematocrit 32.3 % (37-47); Hemoglobin 10.3 g/dL (12.0-15.0); Mean Corp Hgb Conc 31.9 g/dL (32-36); Mean Corpuscular Hgb 29.9 pg (27.0-32.0); Mean Corpuscular Volume 93.6 fL (81-99); Mean Platelet Vol. 9.7 fl (6.2-12.0); Platelet Count 383 K/mm3 (150-450); RBC Distribution Width CV 15.2 % (11.6-14.6); RBC Distribution Width SD 51.7 fl (35.1-43.9); Red Blood Count 3.45 M/mm3 (4.2-5.4); White Blood Count 7.4 K/mm3 (4.4-11.0)
[2022-09-20 06:23] LABS: Anion Gap 7 (5-15); BUN 20 mg/dL (7-18); BUN/Creat Ratio 26.8 RATIO (10-20); Calcium,Total 8.9 mg/dL (8.5-10.1); Chloride 102 mmol/L (98-107); Creatinine, Serum 0.74 mg/dL (0.55-1.02); EST Glomerular Filtration Rate 82 mL/min (>60); Est Glom Filt Rate - Afr Amer 99 mL/min (>60); Glucose 106 mg/dL (74-106); Potassium 3.4 mmol/L (3.5-5.1); Sodium Level 139 mmol/L (136-145)
[2022-09-20] MEDS: Menthol/Lanolin/Calamine/Znox 113 GM Tube 1 APPLIC TOPICAL ×2 (06:30→21:41)
[2022-09-20] MEDS: Levothyroxine 150 MCG Tablet PO (06:30)
[2022-09-20] MEDS: Gabapentin 300 MG Capsule PO ×2 (06:30→14:56)
[2022-09-20] MEDS: Acetaminophen 500 MG Tablet 1000 MG PO ×3 (06:30→21:36)
[2022-09-20 07:19] VITALS: BP 114/59; PULSE 77; RESP 16; TEMP 37.1; O2SAT 97
[2022-09-20] MEDS: Pantoprazole Sodium 40 MG Tablet PO (07:59)
[2022-09-20] MEDS: Calcium Carb/Vitamin D 1 TABLET Tablet PO ×2 (07:59→17:09)
[2022-09-20] MEDS: Senna/Docusate Sodium 1 Tablet 2 TABLET PO ×2 (08:00→21:36)
[2022-09-20] MEDS: hydroCHLOROthiazide 12.5mg 12.5 MG PO (08:00)
[2022-09-20] MEDS: Losartan Potassium 50 MG Tablet PO (08:00)
[2022-09-20] MEDS: Lidocaine 5% Patch 2 PATCH TOPICAL (08:02)
[2022-09-20] MEDS: Nystatin Powder 15gm Bottle 1 APPLIC TOPICAL ×2 (08:06→21:37)
[2022-09-20 19:35] VITALS: BP 100/58; PULSE 77; RESP 17; TEMP 36.1; O2SAT 97
[2022-09-20] MEDS: Gabapentin 600 MG Tablet PO (21:36)
[2022-09-20 21:45] VITALS: O2SAT 97
[2022-09-21] MEDS: traMADol 50 MG Tablet PO ×3 (05:21→19:58)
[2022-09-21] MEDS: Levothyroxine 150 MCG Tablet PO (05:21)
[2022-09-21] MEDS: Menthol/Lanolin/Calamine/Znox 113 GM Tube 1 APPLIC TOPICAL ×2 (05:25→22:05)
[2022-09-21] MEDS: Acetaminophen 500 MG Tablet 1000 MG PO ×3 (06:25→21:57)
[2022-09-21] MEDS: Gabapentin 300 MG Capsule PO ×2 (06:25→14:08)
[2022-09-21 07:32] VITALS: BP 124/63; PULSE 88; RESP 16; TEMP 36.7; O2SAT 99
[2022-09-21] MEDS: Lidocaine 5% Patch 2 PATCH TOPICAL (08:17)
[2022-09-21] MEDS: Losartan Potassium 50 MG Tablet PO (08:17)
[2022-09-21] MEDS: Nystatin Powder 15gm Bottle 1 APPLIC TOPICAL ×2 (08:18→22:06)
[2022-09-21] MEDS: hydroCHLOROthiazide 12.5mg 12.5 MG PO (08:18)
[2022-09-21] MEDS: Calcium Carb/Vitamin D 1 TABLET Tablet PO ×2 (08:18→16:56)
[2022-09-21] MEDS: Pantoprazole Sodium 40 MG Tablet PO (08:18)
[2022-09-21] MEDS: Magnesium Chloride 64 MG Delay Rel.Tablet 128 MG PO (08:19)
[2022-09-21] MEDS: Senna/Docusate Sodium 1 Tablet 2 TABLET PO ×2 (08:19→21:56)
[2022-09-21] MEDS: Magnesium Hydroxide 30 ML UDC PO (11:20)
[2022-09-21 20:00] VITALS: BP 110/60; PULSE 72; RESP 15; TEMP 36.4; O2SAT 95
[2022-09-21] MEDS: Gabapentin 600 MG Tablet PO (21:56)
[2022-09-22] MEDS: traMADol 50 MG Tablet PO ×4 (02:44→23:22)
[2022-09-22] MEDS: Acetaminophen 500 MG Tablet 1000 MG PO ×3 (05:44→21:50)
[2022-09-22] MEDS: Levothyroxine 150 MCG Tablet PO (05:44)
[2022-09-22] MEDS: Gabapentin 300 MG Capsule PO ×2 (05:44→13:30)
[2022-09-22] MEDS: Menthol/Lanolin/Calamine/Znox 113 GM Tube 1 APPLIC TOPICAL ×2 (05:49→21:51)
[2022-09-22 07:03] VITALS: BP 118/74; PULSE 87; RESP 18; TEMP 36.1; O2SAT 98
[2022-09-22] MEDS: Lidocaine 5% Patch 2 PATCH TOPICAL (08:27)
[2022-09-22] MEDS: Senna/Docusate Sodium 1 Tablet 2 TABLET PO ×2 (08:27→21:50)
[2022-09-22] MEDS: Calcium Carb/Vitamin D 1 TABLET Tablet PO ×2 (08:28→17:09)
[2022-09-22] MEDS: Nystatin Powder 15gm Bottle 1 APPLIC TOPICAL ×2 (08:28→21:51)
[2022-09-22] MEDS: hydroCHLOROthiazide 12.5mg 12.5 MG PO (08:29)
[2022-09-22] MEDS: Magnesium Chloride 64 MG Delay Rel.Tablet 128 MG PO (08:29)
[2022-09-22] MEDS: Losartan Potassium 50 MG Tablet PO (08:29)
[2022-09-22] MEDS: Pantoprazole Sodium 40 MG Tablet PO (08:29)
[2022-09-22 19:55] VITALS: BP 102/53; PULSE 66; RESP 12; TEMP 36.9; O2SAT 93
[2022-09-22 20:10] VITALS: O2SAT 93
[2022-09-22] MEDS: Gabapentin 600 MG Tablet PO (21:50)
[2022-09-23] MEDS: traZODone 50 MG Tablet PO (00:15)
[2022-09-23] MEDS: Acetaminophen 500 MG Tablet 1000 MG PO ×3 (04:42→22:00)
[2022-09-23] MEDS: Levothyroxine 150 MCG Tablet PO (04:43)
[2022-09-23] MEDS: Gabapentin 300 MG Capsule PO ×2 (04:43→15:16)
[2022-09-23] MEDS: Menthol/Lanolin/Calamine/Znox 113 GM Tube 1 APPLIC TOPICAL ×2 (04:44→21:22)
[2022-09-23] MEDS: traMADol 50 MG Tablet PO ×3 (05:48→21:19)
[2022-09-23] MEDS: Alendronate Sodium 70 MG Tablet PO (06:39)
[2022-09-23] MEDS: Calcium Carb/Vitamin D 1 TABLET Tablet PO ×2 (08:50→17:10)
[2022-09-23] MEDS: hydroCHLOROthiazide 12.5mg 12.5 MG PO (08:50)
[2022-09-23] MEDS: Lidocaine 5% Patch 2 PATCH TOPICAL (08:50)
[2022-09-23] MEDS: Losartan Potassium 50 MG Tablet PO (08:51)
[2022-09-23] MEDS: Nystatin Powder 15gm Bottle 1 APPLIC TOPICAL ×2 (08:51→21:23)
[2022-09-23] MEDS: SEMAGLUTIDE 1 MG/0.75 ML PEN.INJCTR 0.5 MG SQ (08:51)
[2022-09-23] MEDS: Pantoprazole Sodium 40 MG Tablet PO (08:51)
[2022-09-23] MEDS: Senna/Docusate Sodium 1 Tablet 2 TABLET PO ×2 (08:51→21:58)
[2022-09-23 10:00] VITALS: BP 106/62; PULSE 78; RESP 16; TEMP 36.1; O2SAT 97
--- NOTE | 2022-09-23 13:02 | CASEMGMT ---
Social Work IDT met with patient and for Team meeting. Discussed patient's progress in PT/OT/SN. Educated to Medicare approval of DC 09/26. Pt to DC home with . Pt prefers to start with HHC then OP PT/OT. Pt requesting to use [facility]. SW to make referral for PT/OT. No DME needs. Plan: DC home with 09/26, [facility] PT/OT FELIPE GarlandW
--- NOTE | 2022-09-23 15:22 | PN_ITS ---
Subjective Subjective Lashonda was seen on team rounds today. Her Ciro was present in the room. Afebrile VSS Maintaining appropriate oxygen saturation on RA Oral intake is good Discussed with nursing - no problems that need addressed Reviewed the PT/OT notes Medication list reviewed. Tells me that she had a hard time going to sleep last night but, she got 50 mg of trazodone that is ordered PRN and then went to sleep and slept well. She is trying to cut back on the tramadol and is taking 1 tablet rather than 2 tablets. She denies chest pain, cough, shortness of breath, nausea/vomiting/abdominal pain, calf tenderness, dysuria and lightheadedness. She is ambulating with her own walker now at a slow stable gabriella. Objective Data Objective Data Vital Signs: Vital Signs Temp Pulse Resp BP Pulse Ox O2 Del Method 96.9 F L 78 16 106/62 97 Room Air 09/23/22 10:00 09/23/22 10:00 09/23/22 10:00 09/23/22 10:00 09/23/22 10:00 09/23/22 10:00 Oxygen Delivery Method Room Air Weight: 231 lb 14.821 oz Body Mass Index (BMI) 39.4 Intake & Output: Intake and Output for Last 24 Hours 09/21/22 09/22/22 09/23/22 23:59 23:59 23:59 Intake Total 1390 / 1390 240 / 240 750 / 750 Output Total 800 / 800 500 / 500 Balance 590 / 590 240 / 240 250 / 250 Lab / Micro Data Result Diagrams: 09/20/22 05:36 09/20/22 05:36 Physical Exam Const alert, oriented x3 and no apparent distress Constitutional Narrative: Sitting in the recliner at the bedside. Resp normal respiratory effort and clear to auscultation bilaterally Cardio regular rate and regular rhythm GI normal to inspection, nondistended, normoactive bowel sounds, soft to palpation and non-tender Extremity no calf tenderness General Extremity: Negative for edema Skin General Skin Exam: no breakdown Rashes: no rashes Wound Narrative: the incision is intact with no dehiscence. There is no randal-incisional erythema and no discharge from the wound. No swelling. No pain with palpation around the wound. Assessment & Plan Assessment/Plan (1) Physical debility: (2) Central stenosis of spinal canal: (3) History of lumbar fusion: (4) Normochromic normocytic anemia: (5) Hypertension: (6) Weakness of left leg: (7) Radicular pain of left lower extremity: PLAN: Plan Continue therapy Plan discharge for , 09/26/2022 Home health care at discharge and then progress to OP after a few weeks RX to go to [facility] in [place]. Does not need any DME. does need a hip kit. Charges/Coding Visit Charges Inpatient E&M: 43554 Subs Hosp L2
[2022-09-23] MEDS: Potassium Chloride Oral Tablet 20 MEQ PO (17:10)
[2022-09-23 21:26] VITALS: BP 132/69; PULSE 100; RESP 17; TEMP 36.2; O2SAT 97
[2022-09-23 22:00] VITALS: PULSE 100; RESP 17
[2022-09-23] MEDS: Gabapentin 600 MG Tablet PO (22:00)
[2022-09-24] MEDS: traMADol 50 MG Tablet PO ×3 (05:15→20:01)
[2022-09-24] MEDS: Menthol/Lanolin/Calamine/Znox 113 GM Tube 1 APPLIC TOPICAL ×2 (05:19→22:33)
[2022-09-24] MEDS: Levothyroxine 150 MCG Tablet PO (06:14)
[2022-09-24] MEDS: Acetaminophen 500 MG Tablet 1000 MG PO ×3 (06:16→22:32)
[2022-09-24] MEDS: Gabapentin 300 MG Capsule PO ×2 (06:16→14:46)
[2022-09-24 08:15] VITALS: BP 116/66; PULSE 72; RESP 15; TEMP 35.9; O2SAT 97
[2022-09-24] MEDS: hydroCHLOROthiazide 12.5mg 12.5 MG PO (08:20)
[2022-09-24] MEDS: Pantoprazole Sodium 40 MG Tablet PO (08:20)
[2022-09-24] MEDS: Senna/Docusate Sodium 1 Tablet 2 TABLET PO ×2 (08:20→22:32)
[2022-09-24] MEDS: Calcium Carb/Vitamin D 1 TABLET Tablet PO ×2 (08:20→16:47)
[2022-09-24] MEDS: Losartan Potassium 50 MG Tablet PO (08:20)
[2022-09-24] MEDS: Magnesium Chloride 64 MG Delay Rel.Tablet 128 MG PO (08:20)
[2022-09-24] MEDS: Lidocaine 5% Patch 2 PATCH TOPICAL (08:20)
[2022-09-24] MEDS: Potassium Chloride Oral Tablet 20 MEQ PO (08:22)
[2022-09-24] MEDS: Nystatin Powder 15gm Bottle 1 APPLIC TOPICAL ×2 (08:22→22:32)
--- NOTE | 2022-09-24 11:08 | PCM.PN.BLA ---
Progress Note Afebrile VSS Maintaining appropriate oxygen saturation on RA Oral intake is good Discussed with nursing - no problems that need addressed Reviewed the PT/OT notes Medication list reviewed. Lashonda tells me that she slept much better last night. She took 2 tramadol at HS rather than 1. She has no complaints and denies CP, SOB, Palpitations, calf pain and dysuria. She has also been laying down after therapy sessions and this is helping with pain control. Physical Exam Const no apparent distress General Appearance: cooperative Resp normal respiratory effort, normal air movement and clear to auscultation bilaterally Cardio regular rate, regular rhythm, no murmurs and no gallops GI normal to inspection, nondistended, normoactive bowel sounds, soft to palpation and non-tender GI Narrative: No guarding with palpation Back/Spine Back/Spine Narrative: The lumbar incision is intact with no radnal-incisional erythema, no discharge and no increased warmth to touch. Extremity no calf tenderness and no pedal edema Skin General Skin Exam: no breakdown Rashes: no rashes Assessment & Plan Assessment/Plan (1) Physical debility: (2) Central stenosis of spinal canal: (3) History of lumbar fusion: (4) Normochromic normocytic anemia: (5) Hypertension: (6) Weakness of left leg: (7) Radicular pain of left lower extremity: PLAN: Plan Continue therapy DC . BMP, magnesium and H&H in the AM. Visit Charges Inpatient E&M: 70829 Subs Hosp L1
--- NOTE | 2022-09-24 13:27 | CASEMGMT ---
Social Work Messaged in [facility] and phoned [facility] to follow up on referral status. Liaison to contact this worker. Will continue to follow. FELIPE GarlandW
[2022-09-24 19:45] VITALS: PULSE 85; RESP 18; O2SAT 96
[2022-09-24 20:33] VITALS: BP 118/64; PULSE 85; RESP 18; TEMP 36.4; O2SAT 96
[2022-09-24] MEDS: Gabapentin 600 MG Tablet PO (22:32)
[2022-09-25] MEDS: traMADol 50 MG Tablet PO ×3 (04:20→21:33)
[2022-09-25] MEDS: Acetaminophen 500 MG Tablet 1000 MG PO ×3 (04:20→22:36)
[2022-09-25 06:05] LABS: Hemoglobin 10.4 g/dL (12.0-15.0)
[2022-09-25] MEDS: Levothyroxine 150 MCG Tablet PO (06:43)
[2022-09-25] MEDS: Gabapentin 300 MG Capsule PO ×2 (06:43→14:20)
[2022-09-25] MEDS: Menthol/Lanolin/Calamine/Znox 113 GM Tube 1 APPLIC TOPICAL ×2 (06:43→21:34)
[2022-09-25 07:45] LABS: Anion Gap 6 (5-15); BUN 22 mg/dL (7-18); BUN/Creat Ratio 32.3 RATIO (10-20); Calcium,Total 8.8 mg/dL (8.5-10.1); Chloride 105 mmol/L (98-107); Creatinine, Serum 0.68 mg/dL (0.55-1.02); EST Glomerular Filtration Rate 90 mL/min (>60); Est Glom Filt Rate - Afr Amer 109 mL/min (>60); Glucose 99 mg/dL (74-106); Magnesium 2.2 mg/dL (1.6-2.6); Potassium 3.6 mmol/L (3.5-5.1); Sodium Level 140 mmol/L (136-145)
[2022-09-25 07:47] VITALS: BP 105/72; PULSE 86; RESP 17; TEMP 36.8; O2SAT 93
[2022-09-25] MEDS: Lidocaine 5% Patch 2 PATCH TOPICAL (08:54)
[2022-09-25] MEDS: Senna/Docusate Sodium 1 Tablet 2 TABLET PO ×2 (08:54→21:32)
[2022-09-25] MEDS: Calcium Carb/Vitamin D 1 TABLET Tablet PO ×2 (08:54→17:42)
[2022-09-25] MEDS: hydroCHLOROthiazide 12.5mg 12.5 MG PO (08:54)
[2022-09-25] MEDS: Pantoprazole Sodium 40 MG Tablet PO (08:54)
[2022-09-25] MEDS: Losartan Potassium 50 MG Tablet PO (08:54)
[2022-09-25] MEDS: Potassium Chloride Oral Tablet 20 MEQ PO (08:54)
[2022-09-25] MEDS: Nystatin Powder 15gm Bottle 1 APPLIC TOPICAL ×2 (08:59→21:34)
[2022-09-25 19:33] VITALS: BP 115/70; PULSE 97; RESP 16; TEMP 36.5; O2SAT 98
[2022-09-25 20:00] VITALS: O2SAT 98
[2022-09-25] MEDS: Gabapentin 600 MG Tablet PO (22:36)
[2022-09-26] MEDS: traMADol 50 MG Tablet PO ×2 (04:13→13:23)
[2022-09-26] MEDS: Acetaminophen 500 MG Tablet 1000 MG PO ×2 (06:33→13:20)
[2022-09-26] MEDS: Levothyroxine 150 MCG Tablet PO (06:33)
[2022-09-26] MEDS: Gabapentin 300 MG Capsule PO (06:33)
[2022-09-26] MEDS: Menthol/Lanolin/Calamine/Znox 113 GM Tube 1 APPLIC TOPICAL (06:38)
[2022-09-26 07:31] VITALS: BP 108/70; PULSE 79; RESP 16; TEMP 36.6; O2SAT 96
[2022-09-26] MEDS: Pantoprazole Sodium 40 MG Tablet PO (08:19)
[2022-09-26] MEDS: Magnesium Chloride 64 MG Delay Rel.Tablet 128 MG PO (08:19)
[2022-09-26] MEDS: hydroCHLOROthiazide 12.5mg 12.5 MG PO (08:19)
[2022-09-26] MEDS: Lidocaine 5% Patch 2 PATCH TOPICAL (08:19)
[2022-09-26] MEDS: Losartan Potassium 50 MG Tablet PO (08:19)
[2022-09-26] MEDS: Calcium Carb/Vitamin D 1 TABLET Tablet PO (08:19)
[2022-09-26] MEDS: Senna/Docusate Sodium 1 Tablet 2 TABLET PO (08:20)
[2022-09-26] MEDS: Potassium Chloride Oral Tablet 20 MEQ PO (08:20)
--- NOTE | 2022-09-26 09:22 | DCINST_ITS ---
Discharge Instructions Diet Discharge Diet: - (1800 calorie cazrb control tiwht low fat and low salt.) Activity Discharge Activity: May Not Drive, May Shower and Use Walker Ice area for (Minutes): 10 (after exercising to help with pain control. ) Weight Bearing Status: Full weight bearing Keep extremity elevated above heart level: Legs Dressing / Incision Call your doctor if your incision/area has: - (No dressing needed.) Call your doctor if you observe: Fever of 101 or Higher, Inability to urinate, Inability to have a bowel movement, Shortness of breath, Fainting spells, Chest pain, Increased palpitations (irregular heartbeat), Calf discomfort and Uncontrolled pain Suture Line Care: Avoid Pulling/Pushing and Avoid Pinching/Bending Cleanse incision/area with: Soap & Water Additional Dressing/Incision Instructions:: If the incision becomes reddened, swollen or has any discharge please call your surgeon to update him. Also if you are having fevers, shaking chills or night sweats. Follow Up Care When: Follow up with Dr. Everett Melgar and Dr. Ant Dean. Test Results: Test results from this visit will be discussed in further detail at your follow- up appointment, if applicable. Pending Tests Upon Discharge: none Discharge Plan Admission Admit Date/Time: 09/11/22 19:10 Primary Reason for Your Visit: Debility due to spinal canal stenosis with recent Lumbar fusion Attending Provider: Jaclyn Briscoe Instructions Patient Instructions: Spinal Fusion: Posterior Lumbar, Lumbar Fusion Dc Additional Instructions / Restrictions: 1. You did very well in therapy! I think the transition home will be a smooth one. Remember do not sit for longer than 45-60 minutes without getting up and taking a walk to prevent stiffness. Do the exercises given to you by the ther apists every day. Do NOT be tempted to overdue......you will increase the pain and slow down your recovery. NO bending, twisting or lifting > 5 lbs. These things can impair the bone fusion. Check you incision everyday and look for opening of the incision, redness around the incision and any discharge. If any of these things occur call your PCP or surgeon to be seen. 2. Laying down for 30-45 minutes in the afternoon can help with pain......it takes the pressure off the nerves and you will have a better evening. Sleep is restorative so make sure to get 8 hours of sleep a night. Take a multivitamin daily. Make sure you are getting enough protein in your diet to heal the wound. 3. There is a drug called spironolactone (also called Aldactone) that helps with female hair loss. If the finasteride is not working as well as you wanted you may want to talk to your doctor about starting you on Aldactone in addition to Finasteride. 4. It was a pleasure meeting you and [employer]......you make a great couple. If you guys have any questions after you leave rehab please do not hesitate to call me. You may want to update your med list and keep it in your purse so that you will always be able to tell a physician the meds you are taking. We were missing a few when you came to rehab because they were not listed.. OFFICE: [phone]. CELL: [phone] Discharge Orders/Prescriptions Prescriptions: New gabapentin 300 mg Capsule See Rx Instructions .ROUTE .COMPLEX Qty: 120 0RF Rx Instructions: 300 mg orally twice daily and 600 mg 30 min before bed acetaminophen 500 mg Tablet 1,000 mg PO Q8H PRN PRN (Reason: fever or pain) Qty: 0 0RF lidocaine 5 % Adhesive Patch,Medicated 2 patch topical DAILY Qty: 28 0RF Protocol: *Topical Application Instructions APPLICATION INSTRUCTIONS: apply to both sides of the back in the affected regions (not over her recent incision) Rx Instructions: apply 1 patch to each side of the low back daily and remove at bedtime tramadol 50 mg Tablet 50 - 100 mg PO Q6H PRN PRN (Reason: severe pain 6-10) Qty: 48 0RF pantoprazole 40 mg Tablet,Delayed Release (Dr/Ec) 40 mg PO DAILY Qty: 30 0RF finasteride [Propecia] 1 mg tablet 1 mg PO DAILY Qty: 1 0RF Continued calcium carbonate-vitamin D3 [Calcium 600 + D(3)] 600 mg-10 mcg (400 unit) tablet 600 tab PO BID Label Comments: 1 tablet by mouth twice a day hydrochlorothiazide 12.5 mg tablet 12.5 mg DAILY losartan 50 mg tablet 50 mg DAILY multivitamin Tablet 1 tab DAILY Label Comments: 1 tablet by mouth once a day levothyroxine [Synthroid] 150 mcg tablet 150 mcg DAILY Xarelto 20 mg tablet 20 mg DAILY polyethylene glycol 3350 [Miralax] 17 gram Powder In Packet 17 g PO DAILY alendronate 70 mg Tablet 70 mg PO QWEEK magnesium gluconate 500 mg Tablet 500 mg PO SUTUTHSA potassium chloride 20 mEq Tablet Extended Release 20 meq PO DAILY calcium polycarbophil [Fiber-Lax] 625 mg Tablet 625 mg BID Ozempic 0.25 mg or 0.5 mg(2 mg/1.5 mL) Pen Injector 0.25 mg SUBCUT QWEEK Discontinued hydrocodone-acetaminophen 5-325 mg tablet 1 tab Q4H PRN PRN (Reason: pain 1-10) celecoxib 200 mg capsule 200 mg BID gabapentin 300 mg capsule 300 mg TID metformin 500 mg tablet extended release 24 hr 500 mg PO DAILY metoprolol tartrate 50 mg tablet 50 mg BID Referrals / Follow Up: Everett Stephens MD [Other] - 10/02/22 2:15 pm (Primary Care Physician ) Ant Dean MD [Non-Staff] - 10/17/22 10:10 am Disposition Disposition (needs filled in before D/C Order can be placed): Home Health Service
--- NOTE | 2022-09-26 10:12 | DS.PCM_ITS ---
Providers Date of Admission: 09/11/22 Date of Discharge: 09/26/22 Reason For Visit: LAMMINECTOMY Diagnosis Discharge Diagnosis (1) Physical debility: Status: Acute Code(s): R53.81 - Other malaise (2) Central stenosis of spinal canal: Status: Acute Code(s): M48.00 - Spinal stenosis, site unspecified (3) History of lumbar fusion: Status: Acute Code(s): Z98.1 - Arthrodesis status (4) Normochromic normocytic anemia: Status: Acute Code(s): D64.9 - Anemia, unspecified Plan: due to acute blood loss (5) Hypertension: Status: Chronic Code(s): I10 - Essential (primary) hypertension Plan: Recently lost 40 lbs and the BP is now controlled with just 50 mg of Cozaar daily. Metoprolol was discontinued due to bradycardia and hypotension. (6) Weakness of left leg: Status: Acute Code(s): R29.898 - Other symptoms and signs involving the musculoskeletal system (7) Radicular pain of left lower extremity: Status: Acute Code(s): M54.10 - Radiculopathy, site unspecified (8) Hypothyroidism: Status: Acute Code(s): E03.9 - Hypothyroidism, unspecified (9) Osteoarthritis: Status: Acute Code(s): M19.90 - Unspecified osteoarthritis, unspecified site (10) Diabetes mellitus, type 2: Status: Acute Code(s): E11.9 - Type 2 diabetes mellitus without complications Plan: Diet controlled at present. On Ozembic for wt loss. (11) Obesity (BMI 30-39.9): Status: Acute Code(s): E66.9 - Obesity, unspecified (12) Chronic anticoagulation: Status: Acute Code(s): Z79.01 - intermediate card tender (current) use of anticoagulants Plan: Xarelto resumed at [facility] from rehab. (13) Sleep apnea: Status: Acute Code(s): G47.30 - Sleep apnea, unspecified Plan: Compliant with CPAP (14) CPAP (continuous positive airway pressure) dependence: Status: Acute Code(s): Z99.89 - Dependence on other enabling machines and devices (15) Atrial fibrillation: Status: Acute Code(s): I48.91 - Unspecified atrial fibrillation Plan: Was in NSR the entire time she was on the rehab floor. Plan 1. DC home with [facility]. 2. Follow up with Dr. Everett Melgar and Dr. Ant Dean 3. No bending, twisting or lifting more than 5 lbs. 4. Do the exercises given to you by the therapists every day. Medications at Discharge Home Medications alendronate 70 mg tablet 70 mg PO QWEEK SUPPLEMENT 09/11/22 calcium carbonate 600 mg-vitamin D3 10 mcg (400 unit) tablet (Calcium 600 + D(3)) 600 tab PO BID SUPPLEMENT 09/11/22 calcium polycarbophil 625 mg tablet (Fiber-Lax) 625 mg BID SUPPLEMENT 09/11/22 hydrochlorothiazide 12.5 mg tablet 12.5 mg DAILY HTN 09/11/22 levothyroxine 150 mcg tablet (Synthroid) 150 mcg DAILY THYROID 09/11/22 losartan 50 mg tablet 50 mg DAILY HTN 09/11/22 magnesium gluconate 500 mg tablet 500 mg PO SUTUTHSA SUPPLEMENT 09/11/22 multivitamin 1 tab DAILY SUPPLEMENT 09/11/22 polyethylene glycol 3350 17 gram oral powder packet (Miralax) 17 g PO DAILY LAXATIVE 09/11/22 potassium chloride 20 mEq tablet,extended release 20 meq PO DAILY SUPPLEMENT 09/11/22 rivaroxaban 20 mg tablet (Xarelto) 20 mg DAILY AFIB 09/11/22 semaglutide 0.25 mg or 0.5 mg (2 mg/1.5 mL) subcutaneous pen injector (Ozempic) 0.25 mg subcut QWEEK Check with primary doctor 09/16/22 acetaminophen 500 mg tablet 1,000 mg PO Q8H PRN PRN fever or pain #0 tabs 09/26/22 finasteride 1 mg tablet (Propecia) 1 mg PO DAILY #1 TAB 09/26/22 gabapentin 300 mg capsule See Rx Instructions .Route .COMPLEX #120 caps 09/26/22 lidocaine 5 % topical patch 2 patch topical DAILY #28 ea 09/26/22 pantoprazole 40 mg tablet,delayed release 40 mg PO DAILY #30 tabs 09/26/22 tramadol 50 mg tablet 50 - 100 mg PO Q6H PRN PRN severe pain 6-10 #48 tabs 09/26/22 Hospital Course Operations - (Posterior decompression of L2-L5 and transforaminal lumbar interbody fusion at L3-L5.) Procedures None Summary of Care Provided Minutes Spent on Discharge: 30 Hospital Course: EZIO ANDREWS, is a 71 F with a PMH of hypertension, hyperlipidemia, hypothyroidism, lumbar stenosis, neuropathy of both feet, obstructive sleep apnea, spondylolisthesis, paroxysmal atrial fibrillation, chronic anticoagulation with Xarelto and morbid obesity who underwent posterior decompression of L2-L5 and transforaminal lumbar interbody fusion at L3-5 at [facility].? Post op complication included acute blood loss anemia and she received 2 units of PRBC's.? Ezio was transferred to the acute inpatient rehab unit at [facility] on 09/11/2022 for 3 hours of therapy daily to restore function/independence at or near her level prior to surgery.? HGB was stable between 9-9.5 at discharge from the previous hospital. HGB at presentation to rehab was 9.5 and 1 day prior to DC it was 10.4. Ezio did well in therapy and really had no complications. Gabapentin was increased to 600 mg at HS for better pain control and she was transitioned from [place] to Tramadol due to severe constipation and nausea. At the time of discharge Ezio was supervision/set up for grooming and upper body dressing. She required minimal assistance for lower body dressing and bathing. She is still max assist for toileting but min assist for toilet transfer. She also requires only minimal assistance with tub/shower transfer. She can ambulate 275 feet with an up walker at standby assist and is able to ascend/descend 5 steps of various heights at contact-guard assist with 2 handrails. she was discharged on on 09/26/22 and will have [facility] for PT/OT. She will have follow up with Dr. Everett Melgar and Dr. Ant Dean following DC from rehab. Physical Exam Const alert, oriented x3 and no apparent distress Eyes PERRL, EOMs intact bilaterally, conjunctivae normal, no scleral icterus and normal visual mariee by confrontation Neck full ROM, No nuchal rigidity, no lymphadenopathy and no carotid bruits Chest Chest: symmetrical chest wall rise Resp normal respiratory effort, normal air movement and clear to auscultation bilat erally Resp Narrative: Diminished in the bases, likely secondary to body habitus. Effort and Inspection: able to speak in complete sentences Cardio regular rate, regular rhythm, S1 normal heart sound, S2 normal heart sound, no murmurs, no rub, no gallops and peripheral pulses 2+ throughout GI normal to inspection, nondistended, normoactive bowel sounds, soft to palpation, non-tender, no masses and no bruits GI Narrative: No guarding with palpation no CVA tenderness Back/Spine Back/Spine Narrative: The lumbar incision is intact with no randal-incisional erythema, no discharge and no increased warmth to touch. Extremity no calf tenderness and no pedal edema Extremity Narrative: Dorsalis pedis pulses are 2+ bilaterally. Intact sensation to both feet. Skin General Skin Exam: no breakdown Rashes: no rashes Neuro oriented x3, CN's II-XII intact bilaterally and moves all extremities Neuro Narrative: She has decreased strength in the LLE and this has always been her bad leg Psych mental status grossly normal, thought process normal, cooperative and affect normal Appearance: grossly normal Attitude: calm Activity / Motor Behavior: appropriate eye contact Speech: normal speech Weight / BMI Weight Weight: 227 lb 15.327 oz Body Mass Index (BMI) 39.4 ABG / Lab / Microbiology Data Result Diagrams: 09/25/22 05:48 09/25/22 05:48 D/C Instructions Discharge Diet: - (1800 calorie cazrb control tiwht low fat and low salt.) Ice area for (Minutes): 10 (after exercising to help with pain control. ) Weight Bearing Status: Full weight bearing Keep extremity elevated above heart level: Legs Call your doctor if your incision/area has: - (No dressing needed.) Call your doctor if you observe: Fever of 101 or Higher, Inability to urinate, Inability to have a bowel movement, Shortness of breath, Fainting spells, Chest pain, Increased palpitations (irregular heartbeat), Calf discomfort and Uncontrolled pain Suture Line Care: Avoid Pulling/Pushing and Avoid Pinching/Bending Cleanse incision/area with: Soap & Water Additional Dressing/Incision Instructions: If the incision becomes reddened, swollen or has any discharge please call your surgeon to update him. Also if you are having fevers, shaking chills or night sweats. Pending Tests Upon Discharge: none When: Follow up with Dr. Everett Melgar and Dr. Ant Dean. Meaningful Use Info Meaningful Use Diagnoses (Choose all that apply): None applicable Discharge Plan Admission Admit Date/Time: 09/11/22 19:10 Primary Reason for Your Visit: Debility due to spinal canal stenosis with recent Lumbar fusion Attending Provider: Jaclyn Briscoe Instructions Patient Instructions: Spinal Fusion: Posterior Lumbar, Lumbar Fusion Dc Additional Instructions / Restrictions: 1. You did very well in therapy! I think the transition home will be a smooth one. Remember do not sit for longer than 45-60 minutes without getting up and taking a walk to prevent stiffness. Do the exercises given to you by the therapists every day. Do NOT be tempted to overdue......you will increase the pain and slow down your recovery. NO bending, twisting or lifting > 5 lbs. These things can impair the bone fusion. Check you incision everyday and look for opening of the incision, redness around the incision and any discharge. If any of these things occur call your PCP or surgeon to be seen. 2. Laying down for 30-45 minutes in the afternoon can help with pain......it takes the pressure off the nerves and you will have a better evening. Sleep is restorative so make sure to get 8 hours of sleep a night. Take a multivitamin daily. Make sure you are getting enough protein in your diet to heal the wound. 3. There is a drug called spironolactone (also called Aldactone) that helps with female hair loss. If the finasteride is not working as well as you wanted you may want to talk to your doctor about starting you on Aldactone in addition to Finasteride. 4. It was a pleasure meeting you and Ciro......you make a great couple. If you guys have any questions after you leave rehab please do not hesitate to call me. You may want to update your med list and keep it in your purse so that you will always be able to tell a physician the meds you are taking. We were missing a few when you came to rehab because they were not listed.. OFFICE: [phone]. CELL: [phone] Discharge Orders/Prescriptions Prescriptions: New gabapentin 300 mg Capsule See Rx Instructions .ROUTE .COMPLEX Qty: 120 0RF Rx Instructions: 300 mg orally twice daily and 600 mg 30 min before bed acetaminophen 500 mg Tablet 1,000 mg PO Q8H PRN PRN (Reason: fever or pain) Qty: 0 0RF lidocaine 5 % Adhesive Patch,Medicated 2 patch topical DAILY Qty: 28 0RF Protocol: *Topical Application Instructions APPLICATION INSTRUCTIONS: apply to both sides of the back in the affected regions (not over her recent incision) Rx Instructions: apply 1 patch to each side of the low back daily and remove at bedtime tramadol 50 mg Tablet 50 - 100 mg PO Q6H PRN PRN (Reason: severe pain 6-10) Qty: 48 0RF pantoprazole 40 mg Tablet,Delayed Release (Dr/Ec) 40 mg PO DAILY Qty: 30 0RF finasteride [Propecia] 1 mg tablet 1 mg PO DAILY Qty: 1 0RF Continued calcium carbonate-vitamin D3 [Calcium 600 + D(3)] 600 mg-10 mcg (400 unit) tablet 600 tab PO BID Label Comments: 1 tablet by mouth twice a day hydrochlorothiazide 12.5 mg tablet 12.5 mg DAILY losartan 50 mg tablet 50 mg DAILY multivitamin Tablet 1 tab DAILY Label Comments: 1 tablet by mouth once a day levothyroxine [Synthroid] 150 mcg tablet 150 mcg DAILY Xarelto 20 mg tablet 20 mg DAILY polyethylene glycol 3350 [Miralax] 17 gram Powder In Packet 17 g PO DAILY alendronate 70 mg Tablet 70 mg PO QWEEK magnesium gluconate 500 mg Tablet 500 mg PO SUTUTHSA potassium chloride 20 mEq Tablet Extended Release 20 meq PO DAILY calcium polycarbophil [Fiber-Lax] 625 mg Tablet 625 mg BID Ozempic 0.25 mg or 0.5 mg(2 mg/1.5 mL) Pen Injector 0.25 mg SUBCUT QWEEK Discontinued hydrocodone-acetaminophen 5-325 mg tablet 1 tab Q4H PRN PRN (Reason: pain 1-10) celecoxib 200 mg capsule 200 mg BID gabapentin 300 mg capsule 300 mg TID metformin 500 mg tablet extended release 24 hr 500 mg PO DAILY metoprolol tartrate 50 mg tablet 50 mg BID Referrals / Follow Up: Everett Stephens MD [Other] - 10/02/22 2:15 pm (Primary Care Physician ) Ant Dean MD [Non-Staff] - 10/17/22 10:10 am Disposition Disposition (needs filled in before D/C Order can be placed): Home Health Service Charges/Coding Visit Charges Inpatient E&M: 05581 Disch Hosp
[2022-09-26 14:35] VITALS: BP 108/70; PULSE 79; RESP 16; TEMP 36.6; O2SAT 96
--- NOTE | 2022-09-26 14:37 | NURSING ---
discharged home with family. discharged instruction, medication and appointments viewed with pt and family. denies questions or concerns.
== END 2022-09-26 14:38 | disposition home health service (06) | DRG 560 ==
PROVIDERS: Admitting Provider Internal Medicine; Visit Provider Internal Medicine
DX: Z47.89 Encounter for other orthopedic aftercare (principal); D62 Acute posthemorrhagic anemia; E11.40 Type 2 diabetes mellitus with diabetic neuropathy, unspecified; I48.0 Paroxysmal atrial fibrillation; E78.5 Hyperlipidemia, unspecified; M19.90 Unspecified osteoarthritis, unspecified site; I10 Essential (primary) hypertension; M48.061 Spinal stenosis, lumbar region without neurogenic claudication; E03.9 Hypothyroidism, unspecified; G47.33 Obstructive sleep apnea (adult) (pediatric); Z79.01 Long term (current) use of anticoagulants; Z98.1 Arthrodesis status; Z79.84 Long term (current) use of oral hypoglycemic drugs; Z79.83 Long term (current) use of bisphosphonates; E66.9 Obesity, unspecified; Z79.899 Other long term (current) drug therapy; Z79.890 Hormone replacement therapy; Z68.39 Body mass index [BMI] 39.0-39.9, adult
CPT/HCPCS: 36415; 80048; 80053; 82962; 83036; 83735; 84100; 85014; 85018; 85025; 85027; 97110; 97116; 97162; 97166; 97530; 97535; 97803; 99252; G0463